=== PATIENT | male | born 1970 | race Caucasian/White ===

== ENCOUNTER → 2016-08-04 | Outpatient (CLI) | payer OTHER ==
[~2016-08-04] MED LIST: None per pt
== END ==
LOC: STAR 15:38
PROVIDERS: ATTEND Otolaryngology
DX: Z02.9 Encounter for administrative examinations, unspecified (principal)

== ENCOUNTER → 2016-08-14 | Day surgery (SDC) | payer OTHER ==
[~2016-08-14] VITALS: Ht 188 cm; Wt 100.0 kg
[~2016-08-14] MED LIST changes: +FENTANYL PF 250 MCG/5ML ONE; +LACTATED RINGERS 1,000 ML IV SCH; +LIDOCAINE 1%-EPI 1:100K, 50ML ONE; +MIDAZOLAM 1 MG/ML, 2ML ONE; +NEOSPORIN OINT, 15GM ONE
[2016-08-14 11:48] VITALS: BP 149/89
== END ==
LOC: OUT 11:21
PROVIDERS: ATTEND Otolaryngology
DX: Z02.9 Encounter for administrative examinations, unspecified (principal)
CPT/HCPCS: J2250; J3010; J7120